=== PATIENT | female | born 1945 | race Caucasian/White ===

== ENCOUNTER → 2023-09-29 11:12 | Outpatient (REF) | payer MEDICARE, SELFPAY ==
[2023-09-29 15:09] LABS: % Basophils 1.2 % (0-2); % Eosinophils 1.5 % (0-6); % Immature Granulocytes 0.2 % (0-0.5); % Lymphocytes 39.4 % (20.5-51.1); % Monocytes 9.8 % (1.7-9.3); % Neutrophils 47.9 % (42.2-75.2); Absolute Basophils 0.1 10^3/uL (0-0.2); Absolute Eosinophils 0.1 10^3/uL (0-0.7); Absolute Monocytes 0.5 10^3/uL (0.1-0.6); Absolute Neutrophils 2.5 10^3/uL (1.4-6.5); Hematocrit 41.9 % (37.0-47.0); Hemoglobin 14.1 g/dL (12.0-16.0); Mean Corp Hgb Conc. 33.7 g/dL (33.0-37.0); Mean Corpuscular Hgb 32.3 pg (27.0-31.0); Mean Corpuscular Volume 96.1 fL (81.0-99.0); Mean Platelet Volume 9.5 fL (7.4-10.4); Nucleated Red Blood Cells % 0 %; Platelet Count 233 10^3/uL (130-400); Red Blood Cell Count 4.36 10^6/uL (4.20-5.40); Red Cell Dist. Width 13.1 % (11.5-14.5); White Blood Cell Count 5.2 10^3/uL (4.8-10.8)
[2023-09-29 15:13] LABS: ALT (SGPT) 27 U/L (0-35); AST (SGOT) 31 U/L (14-36); Albumin 4.4 g/dl (3.5-5.0); Alkaline Phosphatase 46 U/L (38-126); Blood Urea Nitrogen 17 mg/dl (7-17); Calcium 10.1 mg/dl (8.4-10.2); Carbon Dioxide 28 mmol/L (22-30); Chloride 99 mmol/L (98-107); Glucose 109 mg/dl (70-99); Sodium 136 mmol/L (135-145); Total Bilirubin 1.4 mg/dl (0.2-1.3); Total Protein 7.3 g/dl (6.3-8.2); eGFR 57.31
[2023-09-29 15:17] LABS: Potassium 3.9 mmol/L (3.5-5.1)
[2023-09-29 15:28] LABS: Vitamin D, 25-OH*** 39.3 ng/mL (30-80)
[2023-10-02 10:59] LABS: Vitamin B6 Results 50.9 nmol/L (20.0-125.0)
== END ==
LOC: HWLAB 11:12
PROVIDERS: ATTENDING PHYSICIAN Internal Medicine; FAMILY PHYSICIAN Internal Medicine Geriatric Medicine
DX: E53.1 Pyridoxine deficiency (principal); E55.9 Vitamin D deficiency, unspecified; E83.39 Other disorders of phosphorus metabolism; M19.041 Primary osteoarthritis, right hand; M19.042 Primary osteoarthritis, left hand; M81.0 Age-related osteoporosis without current pathological fracture; S32.030A Wedge compression fracture of third lumbar vertebra, initial encounter for closed fracture; Z68.25 Body mass index [BMI] 25.0-25.9, adult
CPT/HCPCS: 36415; 80053; 82306; 84207; 85025

== ENCOUNTER 2024-01-12 15:21 | Emergency (ER) | payer MEDICARE, SELFPAY ==
[2024-01-12] VITALS (8 sets, daily range): BP systolic 114–149; BP diastolic 53–71
[2024-01-12 15:59] LABS: % Basophils 0.5 % (0-2); % Eosinophils 1.8 % (0-6); % Immature Granulocytes 0.2 % (0-0.5); % Lymphocytes 27.3 % (20.5-51.1); % Monocytes 11.3 % (1.7-9.3); % Neutrophils 58.9 % (42.2-75.2); Absolute Eosinophils 0.1 10^3/uL (0-0.7); Absolute Lymphocytes 1.7 10^3/uL (1.2-3.4); Absolute Monocytes 0.7 10^3/uL (0.1-0.6); Absolute Neutrophils 3.7 10^3/uL (1.4-6.5); Hematocrit 31.6 % (37.0-47.0); Hemoglobin 10.9 g/dL (12.0-16.0); Mean Corp Hgb Conc. 34.5 g/dL (33.0-37.0); Mean Corpuscular Hgb 32.1 pg (27.0-31.0); Mean Corpuscular Volume 92.9 fL (81.0-99.0); Mean Platelet Volume 8.9 fL (7.4-10.4); Nucleated Red Blood Cells % 0 %; Platelet Count 323 10^3/uL (130-400); Red Cell Dist. Width 13.7 % (11.5-14.5); White Blood Cell Count 6.2 10^3/uL (4.8-10.8)
[2024-01-12 16:02] LABS: ALT (SGPT) 17 U/L (0-35); AST (SGOT) 23 U/L (14-36); Alkaline Phosphatase 46 U/L (38-126); Blood Urea Nitrogen 22 mg/dl (7-17); Calcium 9.4 mg/dl (8.4-10.2); Carbon Dioxide 25 mmol/L (22-30); Chloride 103 mmol/L (98-107); Glucose 128 mg/dl (70-99); Potassium 3.4 mmol/L (3.5-5.1); Sodium 138 mmol/L (135-145); Total Bilirubin 0.7 mg/dl (0.2-1.3); Total Protein 6.7 g/dl (6.3-8.2); eGFR > 60.00
[2024-01-12 16:14] LABS: Troponin I < 0.012 ng/ml
[2024-01-12] MEDS: KCL ELIXIR 40 MEQ PO (17:46)
[2024-01-12 18:56] LABS: TSH Reflex To Free T4 < 0.02 uIU/ml (0.47-4.68)
[2024-01-12 19:28] LABS: Free T4 1.33 ng/dl (0.78-2.19)
--- NOTE | 2024-01-12 19:40 | ED.GENMED ---
History of Present Illness
General
Chief Complaint: Weakness
Time Seen by Provider: 01/12/24 16:35
History of Present Illness
History of Present Illness:
General fatigue and weakness for weeks. At 1 point seemed to improve. Is cut back on her tramadol. No chest pain shortness of breath fever or other complaints. Hip surgery December 20.
Past History
Past History
ED Past Medical History: HTN
ED Past Surgical History: Gynecological
Social History
Tobacco: Non-smoker
Alcohol: Daily
Drug: None
Review of Systems
Review of Systems
All Other Systems: Not applicable
Constitutional: Denies fever
Respiratory: Denies trouble breathing
Cardiac: Denies chest pain or syncope
ABD/GI: Reports no symptoms
Phy Exam
Physical Exam
Physical Exam:
GENERAL: Alert and oriented in no apparent distress
EYE: Orbits normal.
NECK: Supple, no significant adenopathy.
ENT: Pharynx without erythema
CARDIAC: Regular rate and rhythm without any obvious murmurs.
LUNGS: Clear breath sounds,normal
ABDOMEN: Soft, without focal tenderness or distention
NEUROLOGICAL: Alert and oriented , grossly non-focal
SKIN: Warm and dry, no rash or lesion, no discoloration, skin intact. Well-healing left hip scar
MUSCULOSKELETAL: No edema,no deformity.Good color
PSYCH: Normal and appropriate interaction.
Course
Orders/Labs/Results
Orders:
Orders
01/12/24 15:29
Electrocardiogram (*1) Urgent
Reason for Study: Fatigue / Weakness
EKG- Treatment ONCE
01/12/24 15:31
Complete Blood Count/With Diff Urgent
Comprehensive Metabolic Panel Urgent
Free T4 Urgent
TSH Reflex To Free T4 Urgent
Comment: ADD ON
Troponin I Urgent
01/12/24 17:40
CT Chest Pe Study Urgent
Comment:
Reason For Exam: fatigue/ leg pain
Potassium Chloride 10% Elixir [KCl Elixir] 40 meq PO NOW STA
01/12/24 17:41
Add On- LAB Urgent
Tests Added?: tsh reflex t4
Abnormal Lab Results
01/12/24
15:31
RBC 3.40 L 10^6/uL
(4.20-5.40)
Hgb 10.9 L g/dL
(12.0-16.0)
Hct 31.6 L %
(37.0-47.0)
MCH 32.1 H pg
(27.0-31.0)
Absolute Monos (auto) 0.7 H 10^3/uL
(0.1-0.6)
Monocytes % 11.3 H %
(1.7-9.3)
Potassium 3.4 L mmol/L
(3.5-5.1)
BUN 22 H mg/dl
(7-17)
Glucose 128 H mg/dl
(70-99)
TSH (Reflex) < 0.02 L uIU/ml
(0.47-4.68)
01/12/24 15:31
01/12/24 15:31
Vital Signs
Initial and Last Documented VS:
Initial Vital Signs
BP Pulse Ox
147/68 100
01/12/24 15:27 01/12/24 15:27
Last Documented Vital Signs
Temp Pulse Resp BP Pulse Ox
98.5 F 104 33 123/53 100
01/12/24 15:30 01/12/24 19:10 01/12/24 19:10 01/12/24 19:10 01/12/24 19:10
*Radiology
Radiology exam reviewed: radiology read reviewed (Negative CT)
*Pulse Oximetry
Patient hypoxic: no
*EKG
Interpreted by ED Provider?: Yes
Interpretation: abnormal
Comparison EKG: changes noted
Heart Rate: 98
Rate: normal
Rhythm: sinus, PAC's and PVC's
[place]: normal axis
Interval: normal interval
QRS Pattern: normal QRS
Ischemia: no ischemia
*Pigskin Trimmer Interpretation
Rate: normal
Interpretation: normal
Heart Rate: 88
Rhythm: sinus, PAC's and PVC's
*Critical Care Note
Total Time (30-74mins, 75-104mins- exclusive of procedures): Not Applicable
Data Reviewed
Review of Other/Old Records Reveals: Labs, Records and Testing
Update Note
Update Note:
Patient has remained medically stable and nontoxic. No serious etiology for her symptoms. Subclinical hypothyroidism. Minimal hypokalemia. Mild anemia but this is improving. Discharged to follow-up
ED Attending Note
-
Portions of this chart may have been created with voice recognition software.� Occasional wrong word or��sound alike� substitutions may have occurred due to the inherent limitations of voice recognition software.
Discharge Plan
Departure
Patient Disposition: Home (Routine Discharge)
Date of Disposition: 01/12/24
Time of Disposition: 19:41
Patient with high blood pressure during this ER visit?: Yes
Discharge Problem:
General weakness/fatigue, Mild hypokalemia, Anemia, Subclinical hyperthyroidism
Instructions: Hypokalemia, Generalized Weakness (DC), BLOOD PRESSURE
Prescriptions:
No Action
calcium carbonate 600 MG tablet
1,200 mg PO DAILY
loratadine 10 MG tablet
10 mg PO DAILY
biotin 5,000 MCG tablet,disintegrating
5,000 mcg PO DAILY
Psyllium Fiber
2 cap PO BID
sennosides [senna] 1 TABLET tablet
2 tab PO BID 0RF
acetaminophen [Tylenol Extra Strength] 500 MG tablet
1,000 mg PO Q6H 0RF
Rx Instructions:
Do not exceed >4000 mg daily.
docusate sodium 100 MG capsule
100 mg PO BID 0RF
gabapentin 100 MG capsule
200 mg PO TID Qty: 45 0RF
tramadol 50 MG tablet
50 mg PO Q6HPRN PRN (Reason: moderate-severe pain) Qty: 30 0RF
Rx Instructions:
1 tab moderate pain or 2 if pain severe
Dx lami
ongoing therapy
enalapril maleate 5 MG tablet
5 mg PO QPM Qty: 0 0RF
Rx Instructions:
Hold if systolic blood pressure <130 while on Tramadol.
hydrochlorothiazide 25 MG tablet
25 mg PO DAILY Qty: 0 0RF
Rx Instructions:
Hold if systolic blood pressure <130 while on Tramadol.
[id number] serr [Osteo Bi-Flex (5-Loxin)] 1 EACH tablet
1 tab PO DAILY Qty: 0 0RF
Rx Instructions:
Resume in 1 week.
Referrals:
Nadine Joshi MD [Family Provider] - Follow up in 2-3 days
Activity Restrictions/Additional Instructions:
Follow-up closely with your primary physician
Interventions
Interventions:
*Risk Screen - Suicide Last Done: 01/12/24 15:25
*General Assessment Last Done: 01/12/24 15:25
*Neglect/Abuse Screening Last Done: 01/12/24 15:25
ED- Cardiac Assessment Last Done: 01/12/24 15:44
ED- Neurological Assessment Last Done: 01/12/24 15:44
ED- Pulmonary Assessment Last Done: 01/12/24 15:44
Discharge Date and Time
Print Language: [id number]
== END 2024-01-12 20:26 | disposition home or self-care (01) ==
LOC: EMR 15:21
PROVIDERS: EMERGENCY PHYSICIAN Emergency Medicine; FAMILY PHYSICIAN Internal Medicine Geriatric Medicine
DX: R53.1 Weakness (principal); R53.83 Other fatigue; E87.6 Hypokalemia; D64.9 Anemia, unspecified; E05.90 Thyrotoxicosis, unspecified without thyrotoxic crisis or storm; I10 Essential (primary) hypertension; I49.3 Ventricular premature depolarization; I49.1 Atrial premature depolarization
CPT/HCPCS: 99284; 71275; 80053; 84439; 84443; 84484; 85025; 93005; Q9967

== ENCOUNTER → 2024-03-10 10:42 | Outpatient (REF) | payer MEDICARE, SELFPAY | LOC: HWWDC 10:42 | PROVIDERS: ATTENDING PHYSICIAN Internal Medicine Geriatric Medicine | DX: Z12.31 Encounter for screening mammogram for malignant neoplasm of breast (principal) | CPT/HCPCS: 77063; 77067 ==

== ENCOUNTER → 2024-06-23 15:24 | Outpatient (REF) | payer MEDICARE, SELFPAY | LOC: PAVMRI 15:24 | PROVIDERS: ATTENDING PHYSICIAN Physical Medicine & Rehabilitation; FAMILY PHYSICIAN Internal Medicine Geriatric Medicine | DX: M54.16 Radiculopathy, lumbar region (principal) | CPT/HCPCS: 72148 ==

== ENCOUNTER 2024-10-21 06:17 | Day surgery (SDC) | payer MEDICARE, SELFPAY | END 2024-10-21 13:12 | disposition home or self-care (01) | LOC: GI 06:17 | PROVIDERS: ATTENDING PHYSICIAN Internal Medicine Gastroenterology | DX: Z12.11 Encounter for screening for malignant neoplasm of colon (principal); K64.8 Other hemorrhoids; D12.2 Benign neoplasm of ascending colon; K57.30 Diverticulosis of large intestine without perforation or abscess without bleeding; Z80.0 Family history of malignant neoplasm of digestive organs | CPT/HCPCS: 45380; 88305 ==

== ENCOUNTER → 2025-02-08 09:28 | Outpatient (REF) | payer MEDICARE, SELFPAY ==
[2025-02-08 12:02] LABS: Albumin 4.3 g/dl (3.5-5.0); Carbon Dioxide 29 mmol/L (22-30)
[2025-02-08 12:19] LABS: ALT (SGPT) 20 U/L (0-35); AST (SGOT) 22 U/L (14-36); Alkaline Phosphatase 28 U/L (38-126); Blood Urea Nitrogen 17 mg/dl (7-17); Calcium 9.9 mg/dl (8.4-10.2); Chloride 103 mmol/L (98-107); Glucose 106 mg/dl (70-99); Potassium 3.9 mmol/L (3.5-5.1); Sodium 138 mmol/L (135-145); Total Protein 7.2 g/dl (6.3-8.2); eGFR > 60.00
== END ==
LOC: HWLAB 09:28
PROVIDERS: ATTENDING PHYSICIAN Specialist; FAMILY PHYSICIAN Internal Medicine Geriatric Medicine
DX: D41.02 Neoplasm of uncertain behavior of left kidney (principal)
CPT/HCPCS: 36415; 80053

== ENCOUNTER → 2025-03-01 14:23 | Outpatient (REF) | payer MEDICARE, SELFPAY | LOC: MRI 3T 14:23 | PROVIDERS: ATTENDING PHYSICIAN Specialist; FAMILY PHYSICIAN Internal Medicine Geriatric Medicine | DX: D41.02 Neoplasm of uncertain behavior of left kidney (principal) | CPT/HCPCS: 74183; A9575 ==

== ENCOUNTER → 2025-03-28 13:53 | Outpatient (REF) | payer MEDICARE, SELFPAY | LOC: HWWDC 13:53 | PROVIDERS: ATTENDING PHYSICIAN Student in an Organized Health Care Education/Training Program; REFERRING PHYSICIAN Internal Medicine Geriatric Medicine | DX: Z12.31 Encounter for screening mammogram for malignant neoplasm of breast (principal) | CPT/HCPCS: 77063; 77067 ==